=== PATIENT | male | born 1975 | race Caucasian/White ===

== ENCOUNTER → 2018-04-29 | Day surgery (SDC) | payer BC ==
[~2018-04-29] MED LIST: Lactated Ringers 1,000 ML IV SCH; Lactated Ringers 1,000 ML ONE; Propofol 200 MG/20 ML SDV IV ONE
--- NOTE | 2018-04-29 20:44 | OR ---
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 POSTOPERATIVE DIAGNOSIS: 1. HIATAL HERNIA WITH NONOBSTRUCTING SCHATZKI'S RING. 2. SPONTANEOUS GASTROESOPHAGEAL REFLUX DISEASE WITH ESOPHAGITIS. 3. MILD DUODENITIS. 4. NO OBVIOUS UPPER ESOPHAGEAL STRICTURING RINGS OR WEBS. SURGEON: Ash Urbina MD PROCEDURE: FULL-LENGTH EGD WITH BIOPSY X2, DEVAN. ANESTHESIA: SWIMMING POOL SERVICER. COMPLICATIONS: None. SPECIMEN: 1. Duodenal bulb biopsy x1. 2. Distal esophageal biopsy x1. 3. Antral DEVAN. FINDINGS: 1. Full-length EGD. 2. Duodenitis, duodenal bulb, mild, without ulceration or bleeding. 3. Moderate-sized hiatal hernia with nonobstructing Schatzki's ring and associated esophagitis. 4. No upper esophageal stricturing rings or webs. RECOMMENDATIONS: Patient should initiate proton pump therapy and have close medical followup with Dr. Su. INDICATIONS: The patient has been complaining of ongoing issues with reflux and progressive dysphagia. His dysphagia appears to be cricopharyngeal in nature. He apparently had an ENT evaluation and no abnormalities were found. Dr. Su recommended an EGD. DESCRIPTION OF PROCEDURE: The patient was prepped and draped, placed in the left lateral decubitus position. A lubricated Olympus gastroscope was inserted and advanced to the cricopharyngeus area, and easily intubated into the esophagus. The esophageal lining was benign in its entire course until its most distal portion. The upper esophagus had no stricturing, rings, webs, or diverticula. No obvious abnormality or thickening of the cricopharyngeus region seen as well. The patient does have a hiatal hernia moderate in size with a nonobstructing Schatzki's ring. There was some inflammatory change around the EG junction and a biopsy was taken of the affected site. No signs of Copeland's changes. Spontaneous reflux could be seen. The scope was advanced into the stomach through the pylorus into the second portion of the duodenum. This was fine. The duodenal bulb has duodenitis without ulceration and we did do a biopsy of that. The entire stomach lining was evaluated. I could find no signs of any polyps, mass, ulceration, or gross peptic ulcer disease. A CLOtest was obtained. Air was then suctioned from the stomach and scope removed without complication. MILVIA/CARLOSL /[id number]
== END ==
LOC: CC.SDS 12:16
PROVIDERS: ATTEND Family Medicine
DX: K22.2 Esophageal obstruction (principal); K21.0 Gastro-esophageal reflux disease with esophagitis; K29.80 Duodenitis without bleeding; K44.9 Diaphragmatic hernia without obstruction or gangrene; F17.210 Nicotine dependence, cigarettes, uncomplicated
CPT/HCPCS: 87081; J2704; J7120